=== PATIENT | female | born 1975 | race Native Hawaiian/Other Pacific Islander ===

== ENCOUNTER 2020-06-13 09:22 | Outpatient (CLI) | payer BC | END 2020-06-13 19:50 | disposition home or self-care (01) | LOC: RAD 09:22 | PROVIDERS: ATTEND Nurse Practitioner Family | DX: M25.512 Pain in left shoulder (principal); M25.511 Pain in right shoulder ==

== ENCOUNTER 2021-05-14 14:07 | Outpatient (CLI) | payer BC | END 2021-05-14 21:08 | disposition home or self-care (01) | LOC: RAD 14:07 | PROVIDERS: ATTEND Nurse Practitioner | DX: M25.571 Pain in right ankle and joints of right foot (principal) ==

== ENCOUNTER 2022-08-18 09:30 | Outpatient (CLI) | payer BC | END 2022-08-18 22:06 | disposition home or self-care (01) | LOC: US 09:30 | PROVIDERS: ATTEND Internal Medicine | DX: R10.11 Right upper quadrant pain (principal) ==

== ENCOUNTER 2022-09-03 08:05 | Outpatient (CLI) | payer BC | END 2022-09-03 19:08 | disposition home or self-care (01) | LOC: NM 08:05 | PROVIDERS: ATTEND Internal Medicine | DX: K80.20 Calculus of gallbladder without cholecystitis without obstruction (principal) | CPT/HCPCS: A9537 ==